=== PATIENT | male | born 1945 | race Caucasian/White ===

== ENCOUNTER 2017-07-30 09:53 | Inpatient (IN) | payer MEDICARE ==
[~2017-07-30] VITALS: Ht 167.6 cm; Wt 137.0 kg
[~2017-07-30 09:53] MED LIST: ASPI-920 PO; CALC500P30; CHOL400C8 PO; CLOP75TA33 PO; FENO145T19 PO; FLO0.4C PO; GLIM1TAB46 PO; HYDR-565 PO; METF500T PO; PANT-47 PO; PIOG15TA8 PO; SERT50TA PO; TOLT2TAB2 PO; [UNRECOGNIZED DRUG - CODE]
[2017-07-30] MEDS ORDERED: normal saline 1000ML IV soln IVB ONE (10:05)
[2017-07-30 10:33] LABS: BASOPHILS # (AUTO) 0.1 X10'3 (0-0.2); BASOPHILS % (AUTO) 0.5 % (0-1); EOSINOPHILS # (AUTO) 0.1 X10'3 (0-0.9); EOSINOPHILS % (AUTO) 0.8 % (0-6); HEMATOCRIT 42.4 % (42.0-52.0); HEMOGLOBIN 14.2 g/dl (14.0-17.9); LYMPHOCYTES # (AUTO) 0.8 X10'3 (1.1-4.8); LYMPHOCYTES % (AUTO) 4.9 % (21-51); MEAN CORPUSCULAR HEMOGLOBIN 29.2 PG (27.0-31.0); MEAN CORPUSCULAR HGB CONC 33.4 % (33.0-36.5); MEAN CORPUSCULAR VOLUME 87.4 FL (78-98); MEAN PLATELET VOLUME 7.4 FL (7.4-10.4); MONOCYTES # (AUTO) 1.1 X10'3 (0-0.9); MONOCYTES % (AUTO) 6.5 % (2-12); NEUTROPHILS # (AUTO) 14.5 X10'3 (1.8-7.7); NEUTROPHILS % (AUTO) 87.3 % (42-75); PLATELET COUNT 313 X10'3 (140-440); RED BLOOD COUNT 4.85 X10'6 (4.70-6.10); RED CELL DISTRIBUTION WIDTH 15.8 % (11.5-14.5); WHITE BLOOD COUNT 16.6 X10'3 (4.5-11.0)
[2017-07-30 10:47] LABS: ALANINE AMINOTRANSFERASE 34 U/L (12-78); ALBUMIN 2.8 G/DL (3.4-5.0); ALBUMIN/GLOBULIN RATIO 0.7 (1.1-1.5); ALKALINE PHOSPHATASE 45 IU/L (46-116); ASPARTATE AMINO TRANSFERASE 25 U/L (10-37); BILIRUBIN,TOTAL 1.1 MG/DL (0.1-1.0); BLOOD UREA NITROGEN 28 MG/DL (7-18); BUN/CREATININE RATIO 13.8 (5.4-32.0); CREATININE 2.03 MG/DL (0.60-1.10); GLUCOSE 179 MG/DL (70-104); MAGNESIUM 1.4 MG/DL (1.5-2.4); TOTAL PROTEIN 6.8 G/DL (6.4-8.2); eGFR 32 ML/MIN
[2017-07-30 10:48] LABS: ANION GAP 10 (8-16); CHLORIDE 100 MMOL/L (99-107); POTASSIUM 4.1 MMOL/L (3.5-5.1); SODIUM 136 MMOL/L (135-145); TOTAL CARBON DIOXIDE 26.4 MMOL/L (24-32)
[2017-07-30 10:49] LABS: CALCIUM 9.7 MG/DL (8.5-10.1)
[2017-07-30 10:53] LABS: LIPASE 58 U/L (73-393)
[2017-07-30 13:09] LABS: CLARITY,URINE Clear (Clear); COLOR,URINE Yellow (Yellow); GLUCOSE, URINE >=1000 mg/dl (Neg); KETONES,URINE Trace mg/dl (Neg); LEUKOCYTE ESTERASE ,URINE Moderate (Neg); NITRITES, URINE Negative (Neg); OCCULT BLOOD,URINE Moderate (Neg); PH,URINE 5.5 (4.8-8.0); PROTEIN,URINE Trace mg/dl (Neg)
[2017-07-30 13:17] LABS: UA COLLECTION TYPE VOIDED
[2017-07-30 13:18] LABS: BACTERIA,URINE 1+ /HPF (Neg); MUCUS STRANDS NONE SEEN /LPF (Neg); SQUAMOUS EPITHELIAL CELL,UR FEW /LPF (FEW); TRANSITIONAL EPI CELLS,URINE FEW /HPF; WBC,URINE 30-50 /HPF (0-4)
[2017-07-30] MEDS ORDERED: magnesium 4gm in 100ml NS 100 ML IV PRN (14:15)
[2017-07-30] MEDS ORDERED: magnesium 2GM in 50ml NS 50 ML IV PRN (14:15)
[2017-07-30] MEDS ORDERED: potassium Cl 40MEQ/NS 500ml 500 ML IV PRN ×2 (14:15)
[2017-07-30] MEDS ORDERED: acetaminophen 325mg tablet PO PRN (14:15)
[2017-07-30] MEDS ORDERED: magnesium hydroxide 30ml (MOM) UD suspension PO PRN (14:15)
[2017-07-30] MEDS ORDERED: potassium Cl 20 mEq SR tablet PO PRN ×2 (14:15)
[2017-07-30] MEDS ORDERED: cefTRIAXone 1g/NS 100ml IVPB 100 ML IV ONE (14:15)
[2017-07-30] MEDS ORDERED: mag hydrox/Alum hydrox/simeth 30ml oral suspension PO PRN (14:15)
[2017-07-30] MEDS ORDERED: ondansetron/PF 4mg/2ml inj IV PRN (14:15)
[2017-07-30] MEDS ORDERED: magnesium Cl slow-release 64mg tablet PO PRN (14:15)
[2017-07-30] MEDS ORDERED: dextrose 50%-water 50ml dispensing syringe IV PRN ×2 (14:20)
[2017-07-30] MEDS ORDERED: glucagon, human recombinant 1mg kit SUBCUT PRN (14:20)
[2017-07-30] MEDS ORDERED: insulin Lispro (HumaLOG) vial - multi-dose SQ SCH (14:20)
[2017-07-30] MEDS ORDERED: MESSAGE TO PHARMACY PO ONE (14:20)
[2017-07-30] MEDS ORDERED: dextrose ORAL solution 15 GM/59 ML bottle PO PRN ×2 (14:20)
[2017-07-30] MEDS ORDERED: diltiazem CD 120mg capsule (once-daily) PO SCH (14:25)
[2017-07-30] MEDS: cefTRIAXone 1g/NS 100ml IVPB 100 ML IV SCH (14:28)
[2017-07-30] MEDS: normal saline 1000ml 1,000 ML IV SCH (14:28)
[2017-07-30 16:30] VITALS: BP 158/94
[2017-07-30 19:00] VITALS: BP 170/73
[2017-07-30] MEDS: Insulin Detemir pen SQ SCH (21:00)
[2017-07-30] MEDS: fenofibrate 145mg tablet PO SCH (21:49)
[2017-07-30] MEDS: tamsulosin 0.4mg capsule PO SCH (21:49)
[2017-07-30] MEDS: vitamin D (cholecalciferol) 1,000 unit tablet PO SCH (21:49)
[2017-07-30] MEDS: diltiazem CD 120mg capsule (once-daily) PO SCH (21:51)
[2017-07-30] MEDS: tolterodine 2mg SR capsule (24hr) PO SCH (23:22)
[2017-07-30 23:30] VITALS: BP 120/65
[2017-07-31] VITALS (18 sets, daily range): BP systolic 138–174; BP diastolic 69–98
[2017-07-31 05:19] LABS: BASOPHILS # (AUTO) 0.1 X10'3 (0-0.2); BASOPHILS % (AUTO) 0.4 % (0-1); EOSINOPHILS # (AUTO) 0.1 X10'3 (0-0.9); EOSINOPHILS % (AUTO) 0.5 % (0-6); HEMATOCRIT 37.4 % (42.0-52.0); HEMOGLOBIN 12.6 g/dl (14.0-17.9); LYMPHOCYTES % (AUTO) 6.2 % (21-51); MEAN CORPUSCULAR HGB CONC 33.6 % (33.0-36.5); MEAN CORPUSCULAR VOLUME 86.4 FL (78-98); MEAN PLATELET VOLUME 7.7 FL (7.4-10.4); MONOCYTES # (AUTO) 1.3 X10'3 (0-0.9); MONOCYTES % (AUTO) 8.2 % (2-12); NEUTROPHILS # (AUTO) 13.1 X10'3 (1.8-7.7); NEUTROPHILS % (AUTO) 84.7 % (42-75); PLATELET COUNT 323 X10'3 (140-440); RED BLOOD COUNT 4.33 X10'6 (4.70-6.10); RED CELL DISTRIBUTION WIDTH 15.3 % (11.5-14.5); WHITE BLOOD COUNT 15.5 X10'3 (4.5-11.0)
[2017-07-31 06:29] LABS: ALANINE AMINOTRANSFERASE 28 U/L (12-78); ALBUMIN 2.4 G/DL (3.4-5.0); ALBUMIN/GLOBULIN RATIO 0.6 (1.1-1.5); ALKALINE PHOSPHATASE 46 IU/L (46-116); ANION GAP 13 (8-16); ASPARTATE AMINO TRANSFERASE 20 U/L (10-37); BILIRUBIN,TOTAL 0.7 MG/DL (0.1-1.0); BLOOD UREA NITROGEN 27 MG/DL (7-18); BUN/CREATININE RATIO 15.5 (5.4-32.0); CHLORIDE 101 MMOL/L (99-107); CREATININE 1.74 MG/DL (0.60-1.10); GLUCOSE 105 MG/DL (70-104); MAGNESIUM 1.5 MG/DL (1.5-2.4); POTASSIUM 3.6 MMOL/L (3.5-5.1); SODIUM 137 MMOL/L (135-145); TOTAL CARBON DIOXIDE 23.5 MMOL/L (24-32); TOTAL PROTEIN 6.2 G/DL (6.4-8.2); eGFR 39 ML/MIN
[2017-07-31] MEDS: K and/or MAG REPLACEMENT MC SCH (07:48)
[2017-07-31] MEDS: pantoprazole 40mg Tablet.DR PO SCH (07:54)
[2017-07-31] MEDS: sertraline 50mg tablet PO SCH (07:54)
[2017-07-31] MEDS: cefTRIAXone 1g/NS 100ml IVPB 100 ML IV SCH (07:54)
[2017-07-31] MEDS: normal saline 1000ml 1,000 ML IV SCH (08:06)
[2017-07-31] MEDS ORDERED: ringers solution, lacted 1,000 ML IV SCH (12:14)
[2017-07-31] MEDS ORDERED: meperidine/PF 25mg/ml syringe IV PRN ×3 (12:15)
[2017-07-31] MEDS ORDERED: proCHLORperazine 10 MG/2 ml inj IV PRN (12:15)
[2017-07-31] MEDS ORDERED: ondansetron/PF 4mg/2ml inj IV PRN (12:15)
[2017-07-31] MEDS ORDERED: morphine sulfate 8 MG/ML SYRINGE IV PRN ×2 (12:15)
[2017-07-31] MEDS ORDERED: ringers solution, lacted 1,000 ML IV ONE (12:23)
[2017-07-31] MEDS ORDERED: famotidine 20mg tablet PO ONE (12:32)
[2017-07-31] MEDS ORDERED: fentaNYL/PF 50MCG/1 ML 2ML syringe ONE (14:43)
[2017-07-31] MEDS ORDERED: midazolam 2 mg/2 ml injection ONE (14:43)
[2017-07-31] MEDS ORDERED: desflurane 240ml liquid inh. IH ONE (15:04)
[2017-07-31] MEDS ORDERED: LIDOcaine 2% (20mg/ml) 5ml vial ONE (15:16)
[2017-07-31] MEDS ORDERED: propofol inj 20 ML IV ONE (15:41)
[2017-07-31] MEDS: amLODIPine 5mg tablet PO SCH (18:58)
[2017-07-31] MEDS: Insulin Detemir pen SQ SCH (21:00)
[2017-07-31] MEDS: tolterodine 2mg SR capsule (24hr) PO SCH (21:12)
[2017-07-31] MEDS: fenofibrate 145mg tablet PO SCH (21:12)
[2017-07-31] MEDS: tamsulosin 0.4mg capsule PO SCH (21:13)
[2017-07-31] MEDS: diltiazem CD 120mg capsule (once-daily) PO SCH (21:16)
[2017-07-31] MEDS: vitamin D (cholecalciferol) 1,000 unit tablet PO SCH (21:16)
[2017-08-01] MEDS: normal saline 1000ml 1,000 ML IV SCH (00:15)
[2017-08-01 03:16] VITALS: BP 136/68
[2017-08-01 05:22] LABS: BASOPHILS # (AUTO) 0.1 X10'3 (0-0.2); BASOPHILS % (AUTO) 0.5 % (0-1); EOSINOPHILS # (AUTO) 0.1 X10'3 (0-0.9); EOSINOPHILS % (AUTO) 1.1 % (0-6); HEMATOCRIT 38.5 % (42.0-52.0); HEMOGLOBIN 12.8 g/dl (14.0-17.9); LYMPHOCYTES # (AUTO) 0.6 X10'3 (1.1-4.8); LYMPHOCYTES % (AUTO) 5.3 % (21-51); MEAN CORPUSCULAR HEMOGLOBIN 28.9 PG (27.0-31.0); MEAN CORPUSCULAR HGB CONC 33.3 % (33.0-36.5); MEAN CORPUSCULAR VOLUME 86.6 FL (78-98); MEAN PLATELET VOLUME 7.7 FL (7.4-10.4); MONOCYTES # (AUTO) 0.7 X10'3 (0-0.9); NEUTROPHILS # (AUTO) 10.2 X10'3 (1.8-7.7); NEUTROPHILS % (AUTO) 87.1 % (42-75); PLATELET COUNT 375 X10'3 (140-440); RED BLOOD COUNT 4.45 X10'6 (4.70-6.10); RED CELL DISTRIBUTION WIDTH 15.4 % (11.5-14.5); WHITE BLOOD COUNT 11.7 X10'3 (4.5-11.0)
[2017-08-01 06:27] LABS: ALANINE AMINOTRANSFERASE 36 U/L (12-78); ALBUMIN 2.3 G/DL (3.4-5.0); ALBUMIN/GLOBULIN RATIO 0.6 (1.1-1.5); ALKALINE PHOSPHATASE 48 IU/L (46-116); ANION GAP 10 (8-16); ASPARTATE AMINO TRANSFERASE 22 U/L (10-37); BILIRUBIN,TOTAL 0.6 MG/DL (0.1-1.0); BLOOD UREA NITROGEN 32 MG/DL (7-18); BUN/CREATININE RATIO 22.2 (5.4-32.0); CALCIUM 8.6 MG/DL (8.5-10.1); CHLORIDE 103 MMOL/L (99-107); CREATININE 1.44 MG/DL (0.60-1.10); GLUCOSE 229 MG/DL (70-104); MAGNESIUM 1.7 MG/DL (1.5-2.4); POTASSIUM 4.2 MMOL/L (3.5-5.1); SODIUM 138 MMOL/L (135-145); TOTAL CARBON DIOXIDE 24.6 MMOL/L (24-32); TOTAL PROTEIN 6.4 G/DL (6.4-8.2); eGFR 48 ML/MIN
[2017-08-01] MEDS: amLODIPine 5mg tablet PO SCH (07:39)
[2017-08-01] MEDS: cefTRIAXone 1g/NS 100ml IVPB 100 ML IV SCH (07:39)
[2017-08-01] MEDS: tolterodine 2mg SR capsule (24hr) PO SCH (07:39)
[2017-08-01] MEDS: sertraline 50mg tablet PO SCH (07:40)
[2017-08-01] MEDS: pantoprazole 40mg Tablet.DR PO SCH (07:40)
[2017-08-01 07:50] VITALS: BP 154/70
[2017-08-01] MEDS: K and/or MAG REPLACEMENT MC SCH (08:00)
[2017-08-01 12:03] VITALS: BP 151/71
[2017-08-01] MEDS ORDERED: LEVO500T2 PO (14:29)
[2017-08-01] MEDS ORDERED: lactobacillus rhamnosus 10,000 MMU CELLS/CAPSULE PO SCH (17:30)
== END 2017-08-01 16:13 | disposition home or self-care (01) | DRG 694 ==
LOC: ER 09:54 → ED HOLD 14:12 → SUR 3N 16:00 → PACU 07-31 14:38 → SUR 3N 07-31 17:14
PROVIDERS: ADMIT Internal Medicine; ATTEND Internal Medicine
PROC: 0T767DZ Dilation of Right Ureter with Intraluminal Device, Via Natural or Artificial Opening (ICD-10-PCS; principal; 2017-07-31 15:07)
DX: N13.2 Hydronephrosis with renal and ureteral calculous obstruction (principal); E11.22 Type 2 diabetes mellitus with diabetic chronic kidney disease; E11.65 Type 2 diabetes mellitus with hyperglycemia; Z68.42 Body mass index [BMI] 45.0-49.9, adult; N18.3 Chronic kidney disease, stage 3 (moderate); N39.0 Urinary tract infection, site not specified; E66.9 Obesity, unspecified; F32.9 Major depressive disorder, single episode, unspecified; N40.0 Benign prostatic hyperplasia without lower urinary tract symptoms; E78.5 Hyperlipidemia, unspecified; I12.9 Hypertensive chronic kidney disease with stage 1 through stage 4 chronic kidney disease, or unspecified chronic kidney disease; Z79.899 Other long term (current) drug therapy; Z79.02 Long term (current) use of antithrombotics/antiplatelets; Z79.82 Long term (current) use of aspirin; Z79.84 Long term (current) use of oral hypoglycemic drugs; Z86.73 Personal history of transient ischemic attack (TIA), and cerebral infarction without residual deficits; Z87.442 Personal history of urinary calculi
CPT/HCPCS: 36415; 74176; 76000; 80053; 81001; 82948; 83036; 83690; 83735; 85025; 87070; 96360; 99285; A4402; A6213; C1769; C2617; J0696; J2001; J2175; J2250; J2270; J2704; J3010; J7030; J7120